=== PATIENT | male | born 1955 | race Asian ===

== ENCOUNTER 2016-05-22 15:05 | Observation (INO) | payer BC ==
[2016-05-22] VITALS (8 sets, daily range): BP systolic 118–134; BP diastolic 59–76; PULSE 63–83; RESP 16–18; TEMP 98.1–98.7; O2SAT 95–100
[~2016-05-22] VITALS: Ht 165.1 cm; Wt 77.0 kg
[~2016-05-22 15:05] MED LIST: ADVA250A INH; ATRO17AE INH; AZIT250T43 PO; COUG100S2 PO; PRED20 PO
--- NOTE | 2016-05-22 15:22 | PD ---
Physical Exam Date Seen by Provider: May 22, 2016 Time Seen by Provider: 15:17 Narrative 61 YOAM C/O 4 DAYS OF UPPER ABD PAIN. SEEN MONDAY AT URGENT CARE GIVEN ZITH, PRED, INHALER. PAIN 10/23 VS NOTED AWAITING BED PLACEMENT Data Data Last Documented VS Vital Signs Date Time Temp Pulse Resp B/P Pulse Ox O2 Delivery O2 Flow Rate FiO2 05/22/16 15:06 98.7 83 16 118/59 95 MDM Medical Record Reviewed: Yes Supervised Visit with FLAVIO: Yes Guy Acevedo May 22, 2016 15:22
--- NOTE | 2016-05-22 16:09 | PD ---
HPI Chief Complaint: Abdominal Pain Time Seen by Provider: 16:08 Travel History International Travel<30 days: No Contact w/Intl Traveler<30days: No Traveled to known affect area: No History of Present Illness HPI 61-year-old male presents to the emergency department for evaluation of left lower anterior chest pain intermittently for the past 4 days. Patient states that 4 days ago he had sudden onset left anterior lower chest pain intermittently. States that this is persisted for the past 4 days. He also has had a cough for the past 4 days. States that he was seen at an urgent care clinic 3 days ago after his symptoms started and was prescribed an albuterol inhaler, prednisone and a Z-Young which he has been taking without improvement of symptoms. He states that the chest pain is sharp and stabbing lasting only a few seconds at a time. Denies any aggravating or alleviating factors. Denies any history of heart disease or NE. The patient does have a smoking history of 10+ years. Denies any fever, chills, nausea, vomiting, diaphoresis, lightheadedness, shortness of breath, difficulty breathing. No other complaints. PFSH Past Medical History Cardiovascular Problems: No Diminished Hearing: No Genitourinary: No Musculoskeletal: No Neurologic: No Reproductive: No Respiratory: Yes Social History Alcohol Use: Yes (OCC) Tobacco Use: Yes (1PPD) Substance Use: No Allergies-Medications (Allergen,Severity, Reaction): Coded Allergies: No Known Allergies (Unverified , 05/22/16) Reported Meds & Prescriptions Reported Meds & Active Scripts Active Reported Advair Diskus Inh (Fluticasone-Salmeterol Inh) 250-50 Mcg/Blist Aer 1 Puff INH BID Rinse mouth after use. Ipratropium [place] 1 Pow Pow Review of Systems Except as stated in HPI: all other systems reviewed are Neg Physical Exam Narrative GENERAL: Well-nourished and well-developed pleasant male patient in no acute distress. SKIN: Warm and dry. HEAD: Normocephalic and atraumatic. EYES: No injection, drainage, or hyphema noted. PERRLA. EOMI. ENT: No nasal drainage noted. Oropharynx is clear. NECK: Supple and the trachea is midline. CARDIOVASCULAR: Regular rate and rhythm. RESPIRATORY: Mild end-expiratory wheeze bilaterally. No accessory muscle use, rhonchi, or crackles. GASTROINTESTINAL: Abdomen is soft, non-tender, and nondistended. MUSCULOSKELETAL: No obvious deformities, swelling, cyanosis, or ecchymosis is present throughout the upper and lower extremities. Patient has full range of motion without any signs of neurovascular compromise. NEUROLOGICAL: Awake, alert, and oriented. Normal speech and gait. Cranial nerves are grossly intact. Data Data Last Documented VS Vital Signs Date Time Temp Pulse Resp B/P Pulse Ox O2 Delivery O2 Flow Rate FiO2 05/22/16 16:43 97 21 05/22/16 16:42 72 120/68 05/22/16 16:42 16 Room Air 05/22/16 15:06 98.7 Orders Electrocardiogram (05/22/16 15:23) Ckmb (Isoenzyme) Profile (05/22/16 16:06) Complete Blood Count With Diff (05/22/16 16:06) Comprehensive Metabolic Panel (05/22/16 16:06) Magnesium (Mg) (05/22/16 16:06) Prothrombin Time / Inr (Pt) (05/22/16 16:06) Act Partial Throm Time (Ptt) (05/22/16 16:06) Troponin I (05/22/16 16:06) Lipase (05/22/16 16:06) Chest, Single Ap (05/22/16 16:06) Ecg Monitoring (05/22/16 16:06) Bilateral Bp Monitoring (05/22/16 16:06) Iv Access Insert/Monitor (05/22/16 16:06) Oximetry (05/22/16 16:06) Sodium Chloride 0.9% Flush (Ns Flush) (05/22/16 16:15) Albuterol-Ipratropium Neb (Duoneb Neb) (05/22/16 16:15) D-Dimer (05/22/16 16:06) Influenzae A/B Antigen (05/22/16 16:08) Aspirin Chew (Aspirin Chew) (05/22/16 16:45) CKMB (05/22/16 16:30) CKMB% (05/22/16 16:30) Potassium Chloride Eff (K-Lyte Cl Eff) (05/22/16 17:45) Admit Order (Ed Use Only) (05/22/16 17:46) Labs Laboratory Tests Test 05/22/16 16:30 White Blood Count 3.9 TH/MM3 Red Blood Count 4.48 MIL/MM3 Hemoglobin 13.3 GM/DL Hematocrit 40.0 % Mean Corpuscular Volume 89.4 FL Mean Corpuscular Hemoglobin 29.7 PG Mean Corpuscular Hemoglobin 33.2 % Concent Red Cell Distribution Width 13.2 % Platelet Count 120 TH/MM3 Mean Platelet Volume 7.7 FL Neutrophils (%) (Auto) 64.6 % Lymphocytes (%) (Auto) 22.6 % Monocytes (%) (Auto) 12.5 % Eosinophils (%) (Auto) 0.0 % Basophils (%) (Auto) 0.3 % Neutrophils # (Auto) 2.5 TH/MM3 Lymphocytes # (Auto) 0.9 TH/MM3 Monocytes # (Auto) 0.5 TH/MM3 Eosinophils # (Auto) 0.0 TH/MM3 Basophils # (Auto) 0.0 TH/MM3 CBC Comment DIFF FINAL Differential Comment Prothrombin Time 10.7 SEC Prothromb Time International 1.0 RATIO Ratio Activated Partial 32.4 SEC Thromboplast Time D-Dimer Quantitative (PE/DVT) 0.26 MG/L FEU Sodium Level 134 MEQ/L Potassium Level 3.3 MEQ/L Chloride Level 99 MEQ/L Carbon Dioxide Level 28.5 MEQ/L Anion Gap 7 MEQ/L Blood Urea Nitrogen 14 MG/DL Creatinine 1.06 MG/DL Estimat Glomerular Filtration 71 ML/MIN Rate Random Glucose 94 MG/DL Calcium Level 8.0 MG/DL Magnesium Level 2.1 MG/DL Total Bilirubin 0.3 MG/DL Aspartate Amino Transf 20 U/L (AST/SGOT) Alanine Aminotransferase 17 U/L (ALT/SGPT) Alkaline Phosphatase 35 U/L Total Creatine Kinase 129 U/L Creatine Kinase MB 0.8 NG/ML Troponin I LESS THAN 0.02 NG/ML Total Protein 6.8 GM/DL Albumin 3.4 GM/DL Lipase 232 U/L MDM Medical Decision Making Medical Screen Exam Complete: Yes Emergency Medical Condition: Yes Differential Diagnosis Pleuritic chest pain versus atypical chest pain versus ACS versus bronchitis versus pneumonia Narrative Course 61-year-old male presents to the emergency department for evaluation of left lower anterior chest pain for 4 days. Patient is afebrile, vital signs are stable. Physical examination reveals mild and expiratory wheeze but is otherwise unremarkable. IV access obtained, labs been drawn and sent. Patient is placed on cardiac telemetry and pulse oximetry monitoring. Patient is administered a DuoNeb and aspirin. EKG shows normal sinus rhythm with no acute ST elevations or depressions. CBC shows a decreased white count of 3.9, red blood and 4.48, platelet count of 120. CMP shows mild hypokalemia with potassium of 3.3. Troponin is less than 0.02. Coags are unremarkable. D-dimer is negative. Chest x-ray is negative for any acute abnormalities. Patient has remained stable and without complaint while here in the emergency department. This is atypical chest pain however due to the patient's age and risk factors of being admitted to chest pains and for repeat cardiac enzymes and EKGs. I discussed the case with my attending physician Dr. Wright who is aware of the patients history, physical examination findings, and treatment plan. Diagnosis Primary Impression: Chest pain Qualified Code: R07.9 - Chest pain, unspecified type Additional Impression: Bronchitis Admitting Information Admitting Physician Requests: Keily Valdivia May 22, 2016 16:08
[2016-05-22] MEDS ORDERED: SODIUM CHLORIDE 0.9% FLUSH 10 ML FLUSH IVF PRN (16:15)
[2016-05-22] MEDS ORDERED: RESP: ALBUTEROL 2.5 MG/IPRATROPIUM 0.5 MG NEB (SCH) INH ONE (16:15)
[2016-05-22] MEDS ORDERED: ASPIRIN 81 MG CHEW TAB PO ONE (16:45)
[2016-05-22] MEDS ORDERED: ADVA250A INH (16:48)
[2016-05-22] MEDS ORDERED: IPRA1POW8 (16:48)
[2016-05-22 17:04] LABS: AUTOMATED NEUTROPHIL # 2.5 TH/MM3 (1.8-7.7); BASOPHIL % 0.3 % (0.0-2.0); HEMO FLAGS DIFF FINAL; LYMPH % 22.6 % (9.0-44.0); LYMPHOCYTE # 0.9 TH/MM3 (1.0-4.8); MEAN CELL VOLUME 89.4 FL (80.0-100.0); MEAN CORPUSCULAR HEMOGLOBIN 29.7 PG (27.0-34.0); MEAN CORPUSCULAR HGB CONC 33.2 % (32.0-36.0); MONO % 12.5 % (0.0-8.0); NEUT % 64.6 % (16.0-70.0); PLATELET COUNT 120 TH/MM3 (150-450); RED BLOOD COUNT 4.48 MIL/MM3 (4.50-5.90); RED CELL DISTRIBUTION WIDTH 13.2 % (11.6-17.2); WHITE BLOOD COUNT 3.9 TH/MM3 (4.0-11.0)
--- NOTE | 2016-05-22 17:04 | RADRPT ---
EXAM DATE/TIME: 05/22/2016 16:05 [facility] COMPARISON: CHEST SINGLE AP, June 17, 2013, 5:23. INDICATIONS : Lower chest pain and coughing. MEDICAL HISTORY : Chronic obstructive pulmonary disease. Asthma. SURGICAL HISTORY : None. ENCOUNTER: Initial ACUITY: 4 - 6 days PAIN SCORE: 6/10 LOCATION: Left lower chest FINDINGS: A single view of the chest demonstrates the lungs to be symmetrically aerated without evidence of mas s, infiltrate or effusion. The cardiomediastinal contours are unremarkable. Osseous structures are intact. CONCLUSION: Normal examination for a patient of this age. No significant change has occurred. Guy Romero MD on May 22, 2016 at 16:55 Board Certified Radiologist. This report was verified electronically.
[2016-05-22 17:24] LABS: APTT (PATIENT) 32.4 SEC (24.3-30.1); PROTHROMBIN TIME - PATIENT 10.7 SEC (9.8-11.6)
[2016-05-22 17:33] LABS: ANION GAP 7 MEQ/L (5-15); AST (GOT) 20 U/L (15-37); BICARBONATE 28.5 MEQ/L (21.0-32.0); BLOOD UREA NITROGEN 14 MG/DL (7-18); CHLORIDE 99 MEQ/L (98-107); GLOMERULAR FILTRATION RATE 71 ML/MIN (>89); MAGNESIUM 2.1 MG/DL (1.5-2.5); POTASSIUM 3.3 MEQ/L (3.5-5.1); SODIUM (NA) 134 MEQ/L (136-145)
[2016-05-22 17:39] LABS: ALKALINE PHOSPHATASE 35 U/L (45-117); ALT (GPT) 17 U/L (12-78); CREATINE KINASE 129 U/L (39-308); TOTAL BILIRUBIN ADULT 0.3 MG/DL (0.2-1.0)
[2016-05-22] MEDS ORDERED: POTASSIUM CHLORIDE 25 MEQ EFFERVESCENT TAB PO ONE (17:45)
[2016-05-22 17:51] LABS: CKMB 0.8 NG/ML (0.5-3.6)
[2016-05-22] MEDS ORDERED: ACETAMINOPHEN 500 MG CPLT PO PRN (18:00)
[2016-05-22] MEDS ORDERED: SODIUM CHLORIDE 0.9% FLUSH 10 ML FLUSH IV FLUSH PRN (18:00)
--- NOTE | 2016-05-22 18:35 | HHI.HP ---
HPI Primary Care Physician No Primary Care Physician Chief Complaint Chest pain History of Present Illness 61-year-old male with no significant medical history and current smoker presents to the emergency room for further evaluation of left lower chest pain. Onset began . Location left lower chest with occasional radiation that varies in location. States shooting pain begins in left lower chest and radiate to either left lower abdomen, right lower abdomen, or right anterior chest. Duration has been constant since , intensity waxes and wanes. No associated symptoms. Movement, breathing, palpation, or position does not make pain better or worse. Precipitating factors includes coughing since . No relieving factors. Cough and fever began . Monday went to urgent care and was provided antibiotic, albuterol inhaler, and prednisone. He has been taking medicine as prescribed with no relief of left sided chest pain, therefore he believes medicine is not working. States he came to the ER because pain is unbearable when pain suddenly occurs. Review of Systems General: No fatigue,weakness. Believes he has been feverish, denies chills. Started with upper respiratory illness . Continues to have good appetite. HEENT: No GONZALEZ, no vision changes, no nasal congestion or drainage, no dysphasia CV: As stated above. No chest pressure, palpitations, intermittent leg pain, dizziness RESP: Intermittent productive cough 4 days. No SOB, wheeze, hemoptysis, or asthma GI: No nausea, vomiting, bowel changes, diarrhea, constipation, pain, distention , melena, blood in the stool. No c : No dysuria, urgency, frequency EXT: No lower leg edema, no paraesthesias MS: No discomfort or change in ROM NEURO: No change in memory, dizziness, difficulty with balance, LOC, motor/ sensory deficits PSYCH: No anxiety, depression SKIN: No rashes, no concerning lesions Past Family Social History Allergies: Coded Allergies: No Known Allergies (Unverified , 05/22/16) Past Medical History Nonemoved from [facility] to 8 years ago. No known medical problems, does not have a PCP an area. Past Surgical History None Reported Medications Reported Meds & Active Scripts Active Reported Advair Diskus Inh (Fluticasone-Salmeterol Inh) 250-50 Mcg/Blist Aer 1 Puff INH BID Rinse mouth after use. Active Ordered Medications Current Medications Medications (Trade) Dose Ordered Sig/April Route Start Time Stop Time Status Last Admin (Tylenol) 500 mg Q4H PRN PO 05/22/16 18:00 Family History Noncontributory for early onset cardiovascular disease. Social History No known diabetes, hypertension, or hyperlipidemia. Started smoking at age 46, smokes half pack cigarettes daily. Denies alcohol or illegal drug use. . Reports being active to remain fit. Past cardiac testing No formal cardiac testing. No known coronary artery disease. No past cardiac catheterizations. Physical Exam Vital Signs Vital Signs Date Time Temp Pulse Resp B/P Pulse Ox O2 Delivery O2 Flow Rate FiO2 05/22/16 18:23 75 16 121/62 98 05/22/16 16:43 97 21 05/22/16 16:42 72 120/68 05/22/16 16:42 74 16 121/65 100 Room Air 05/22/16 15:06 98.7 83 16 118/59 95 Physical Exam GENERAL: Alert WN, WD, NAD, pleasant, male HEAD: NC, AT EYES: Sclera clear, conjunctiva without injection, pupils equal and round CV: RRR, without murmur, rub, gallop, no JVD, S1-S2 no S3-S4. RESP: Upper lobes inspiratory wheezing, no wheezing bilateral lower lobes bilateral lobes diminished. No crackles or rhonchi. Symmetrical chest rise, nonlabored, able to speak in full sentences. ABD: Soft, NT, ND, no masses, positive bowel tones EXT: Pulses +24, no dependent edema MS: Normal tone 4 extremities, nontender, no obvious deformities, full range of motion NEURO: CN II through CN XII grossly intact, motor strength 5/5, gait WNL PSYCH: A+O 3, pleasant affect, appropriate speech, appropriate mood and affect , insight and judgment SKIN: Normal turgor, normal texture, no lesions, no rashes, brisk cap refill, even hair distribution Laboratory Laboratory Tests Test 05/22/16 16:30 White Blood Count 3.9 Red Blood Count 4.48 Hemoglobin 13.3 Hematocrit 40.0 Mean Corpuscular Volume 89.4 Mean Corpuscular Hemoglobin 29.7 Mean Corpuscular Hemoglobin 33.2 Concent Red Cell Distribution Width 13.2 Platelet Count 120 Mean Platelet Volume 7.7 Neutrophils (%) (Auto) 64.6 Lymphocytes (%) (Auto) 22.6 Monocytes (%) (Auto) 12.5 Eosinophils (%) (Auto) 0.0 Basophils (%) (Auto) 0.3 Neutrophils # (Auto) 2.5 Lymphocytes # (Auto) 0.9 Monocytes # (Auto) 0.5 Eosinophils # (Auto) 0.0 Basophils # (Auto) 0.0 CBC Comment DIFF FINAL Differential Comment Prothrombin Time 10.7 Prothromb Time International 1.0 Ratio Activated Partial 32.4 Thromboplast Time D-Dimer Quantitative (PE/DVT) 0.26 Sodium Level 134 Potassium Level 3.3 Chloride Level 99 Carbon Dioxide Level 28.5 Anion Gap 7 Blood Urea Nitrogen 14 Creatinine 1.06 Estimat Glomerular Filtration 71 Rate Random Glucose 94 Calcium Level 8.0 Magnesium Level 2.1 Total Bilirubin 0.3 Aspartate Amino Transf 20 (AST/SGOT) Alanine Aminotransferase 17 (ALT/SGPT) Alkaline Phosphatase 35 Total Creatine Kinase 129 Creatine Kinase MB 0.8 Troponin I LESS THAN 0.02 Total Protein 6.8 Albumin 3.4 Lipase 232 Date/Time Procedure Status Source Growth 05/22/16 16:20 Influenza Types A,B Antigen (ARIELA) Received Nasal Washing Pending Result Diagram: 05/22/16 1630 05/22/16 1630 Imaging Last Impressions Chest X-Ray 05/22/16 1606 Signed Impressions: Service Date/Time: Sunday, May 22, 2016 16:05 - CONCLUSION: Normal examination for a patient of this age. No significant change has occurred. Guy Romero MD Course EKGs First EKG normal sinus rhythm, normal axis, no ST or T-segment changes Assessment and Plan Assessment and Plan #1 Chest pain-admitted to chest pain center. We'll complete 3 sets of EKGs, cardiac enzymes, and monitored overnight. Will be seen and evaluated by Dr. Celestino Miller in a.m. 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 Discussed with patient in length he is most likely experiencing chest wall pain from his recent upper respiratory illness. Patient is agreeable to plan of care. #2 Bronchitisrespiratory treatments every 6 and and every 2 when necessary. Encouraged patient to continue prednisone and antibiotic provided by urgent care after discharge. Will continue prednisone and azithromycin. #3 Chest wall painLortab 1 tablet every 6 hours when necessary. #4 Tobacco usediscussed and counseled on risk of tobacco use. Encouraged patient to quit smoking. Discussed the importance of establishing with a PCP for routine lab work and preventative medicine. Candy Fay May 22, 2016 18:35
[2016-05-22] MEDS ORDERED: ONDANSETRON HCL 4 MG/2 ML VIAL IV PRN (18:45)
[2016-05-22] MEDS ORDERED: NITROGLYCERIN 0.4 MG SL 25 TABS/BTL SL PRN (18:45)
[2016-05-22] MEDS ORDERED: RESP: ALBUTEROL 2.5 MG/3 ML NEB (PRN) NEB (19:15)
[2016-05-22] MEDS ORDERED: COUG100S2 PO (19:38)
[2016-05-22] MEDS ORDERED: GUAI100L5 PO (19:38)
[2016-05-22] MEDS ORDERED: AZIT250T3 PO (19:38)
[2016-05-22] MEDS ORDERED: PRED20 PO (19:38)
[2016-05-22] MEDS ORDERED: guaiFENesin SOLUTION 200 MG/10 ML CUP PO PRN (19:45)
[2016-05-22] MEDS: ACETAMINOPHEN/HYDROcodone 325 MG/5 MG TAB PO PRN (20:16)
[2016-05-22] MEDS: SODIUM CHLORIDE 0.9% FLUSH 10 ML FLUSH IV FLUSH SCH (20:16)
[2016-05-22] MEDS: BUDESONIDE-FORMOTEROL 160/4.5 MCG INHALER INH SCH (20:17)
[2016-05-22 20:32] LABS: CREATINE KINASE 141 U/L (39-308)
[2016-05-22 20:44] LABS: CKMB 0.7 NG/ML (0.5-3.6)
[2016-05-22] MEDS: RESP: ALBUTEROL 2.5 MG/3 ML NEB (SCH) INH (22:51)
[2016-05-22 23:21] LABS: CREATINE KINASE 128 U/L (39-308)
[2016-05-22 23:34] LABS: CKMB 0.7 NG/ML (0.5-3.6)
[2016-05-23] VITALS (8 sets, daily range): BP systolic 99–103; BP diastolic 61–69; PULSE 75–87; RESP 18–20; TEMP 97.8–98.6; O2SAT 93–96
[2016-05-23] MEDS: RESP: ALBUTEROL 2.5 MG/3 ML NEB (SCH) INH ×2 (04:00→10:00)
[2016-05-23] MEDS: ACETAMINOPHEN/HYDROcodone 325 MG/5 MG TAB PO PRN ×2 (04:09→11:47)
[2016-05-23] MEDS ORDERED: ASPIRIN 325 MG TAB PO SCH (09:00)
[2016-05-23] MEDS ORDERED: AZITHROMYCIN 250 MG TAB PO SCH (09:00)
[2016-05-23] MEDS ORDERED: predniSONE 20 MG TAB PO SCH (09:00)
[2016-05-23] MEDS ORDERED: REGADENOSON INJ 0.4 MG/5 ML SYR ONE (10:07)
--- NOTE | 2016-05-23 11:38 | RADRPT ---
EXAM DATE/TIME: 05/23/2016 09:07 [facility] COMPARISON: No previous studies available for comparison. INDICATIONS : Left sided chest pain for four days. Angina. DOSE: 27.0 mCi Tc99m Myoview at stress. 8.7 mCi Tc99m Myoview at rest. 0.4 mg Lexiscan STRESS SYMPTOMS: Dyspnea and heart racing. EJECTION FRACTION: 65% MEDICAL HISTORY : None SURGICAL HISTORY : None. ENCOUNTER: Initial ACUITY: 4 - 6 days PAIN SCALE: 5/10 LOCATION: Left chest TECHNIQUE: The patient underwent pharmacologic stress with infusion of prescribed dose. Continuous ECG tracing was monitored during stress. Gated SPECT imaging was performed after stress and conventional SPECT i maging was performed at rest. The examination was performed on a SPECT/CT scanner, both attenuation and non-corrected datasets were reviewed. FINDINGS: DISTRIBUTION: The maximum perfused segment at stress is in the inferior wall. PERFUSION STUDY: The pattern of perfusion at stress is within normal limits. No fixed or reversible perfusion defect i s identified. GATED STUDY: There is intact wall motion and thickening without hypokinetic or dyskinetic segments. CONCLUSION: 1. Left ventricle perfusion is within normal limits. No fixed or reversible perfusion defect is ident ified. 2. Normal left ventricle wall motion and ejection fraction calculated at 65%. RISK CATEGORY: Low (<1% Annual Mortality Rate) Tomas Blount MD on May 23, 2016 at 11:26 Board Certified Radiologist. This report was verified electronically.
[2016-05-23] MEDS: SODIUM CHLORIDE 0.9% FLUSH 10 ML FLUSH IV FLUSH SCH (11:40)
[2016-05-23] MEDS: BUDESONIDE-FORMOTEROL 160/4.5 MCG INHALER INH SCH (11:41)
--- NOTE | 2016-05-23 11:49 | HHI.DCPOC ---
Discharge Care Plan Diagnosis: (1) Chest pain, atypical (2) Influenza B (3) Tobacco abuse Goals to Promote Your Health * To prevent worsening of your condition and complications * To maintain your health at the optimal level Directions to Meet Your Goals Take your medications as prescribed Follow your dietary instruction Follow activity as directed Keep your appointments as scheduled Take your immunizations and boosters as scheduled If your symptoms worsen call your PCP, if no PCP go to Urgent Care Center or Emergency Room Smoking is Dangerous to Your Health. Avoid second hand smoke Call the 24-hour hour crisis hotline for domestic abuse at Bartolo Wang May 23, 2016 11:49
--- NOTE | 2016-05-23 14:12 | EKG ---
Date Performed: 05/22/2016 Time Performed: 19:30:40 PTAGE: 61 years EKG: Sinus rhythm Since previous tracing, no significant change noted NORMAL ECG PREVIOUS TRACING : 05/22/16 15.27.08 DOCTOR: Felisa Morgan Interpretating Date/Time 05/23/2016 14:11:30
--- NOTE | 2016-05-23 14:25 | EKG ---
Date Performed: 05/22/2016 Time Performed: 15:27:08 PTAGE: 61 years EKG: Sinus rhythm NORMAL ECG INTERPRETATION BASED ON A DEFAULT AGE OF 40 YEARS Since the prior tracing, the lateral ST T-wave changes have resolved. PREVIOUS TRACING : 06/17/2013 05.11 DOCTOR: Felisa Morgan Interpretating Date/Time 05/23/2016 14:25:08
--- NOTE | 2016-05-23 16:42 | EKG ---
Date Performed: 05/22/2016 Time Performed: 22:41:41 PTAGE: 61 years EKG: Sinus rhythm NORMAL ECG PREVIOUS TRACING : 05/22/2016 19.30 Since previous tracing, no significant change noted DOCTOR: Celestino Miller Interpretating Date/Time 05/23/2016 16:41:59
--- NOTE | 2016-05-23 16:45 | TR ---
Date Performed: 05/23/2016 Time Performed: 10:06:58 DOCTOR: Celestino Miller DRUG LIST: CLINICAL HISTORY: REASON FOR TEST: REASON FOR ENDING: OBSERVATION: CONCLUSION: Lexiscan stress test was performed under standard four minute protocol. Radionuclid e was injected one minute prior to ending the test. No electrocardiographic abormalities were present to suggest ischemia. Nuclear imaging and interpretation are pending. COMMENTS:
== END 2016-05-23 13:26 | disposition home or self-care (01) ==
LOC: NEPC 15:05 → NEDA 17:48 → NEPGCP 19:25
DX: R07.89 Other chest pain (principal); J40 Bronchitis, not specified as acute or chronic; R10.10 Upper abdominal pain, unspecified; F17.210 Nicotine dependence, cigarettes, uncomplicated; R06.2 Wheezing; E87.6 Hypokalemia; J11.1 Influenza due to unidentified influenza virus with other respiratory manifestations; R06.00 Dyspnea, unspecified
CPT/HCPCS: 71010; 78452; 80053; 82550; 82552; 83690; 83735; 84484; 85025; 85379; 85610; 85652; 85730; 87804; 93005; 93017; 94640; 94664; 99285; A9502; G0378; J2785; J7512; J7613